=== PATIENT | male | born 1970 | race Two or more races ===

== ENCOUNTER → 2017-03-08 | Emergency (ER) | payer MEDICAID, OTHER ==
[~2017-03-08] MED LIST: ASPI81CH43; CARI250T8; DEPAKOTE; GEODON; NORCO; WARF7.5T
== END | disposition left against medical advice (07) ==
LOC: ER 21:12
DX: Z76.1 Encounter for health supervision and care of foundling (principal); Z76.0 Encounter for issue of repeat prescription; Z53.21 Procedure and treatment not carried out due to patient leaving prior to being seen by health care provider

== ENCOUNTER 2017-04-29 08:19 | Emergency (ER) | payer MEDICAID ==
[~2017-04-29] VITALS: Ht 167.6 cm; Wt 83.5 kg
[~2017-04-29 08:19] MED LIST changes: +CARI250T; -CARI250T8
[2017-04-29 08:41] VITALS: BP 120/86
== END 2017-04-29 09:06 | disposition home or self-care (01) ==
LOC: ER 08:19
DX: F41.9 Anxiety disorder, unspecified (principal); R51 Headache; F17.290 Nicotine dependence, other tobacco product, uncomplicated; I82.509 Chronic embolism and thrombosis of unspecified deep veins of unspecified lower extremity

== ENCOUNTER 2021-05-04 14:51 | Emergency (ER) | payer MEDICAID ==
[~2021-05-04] VITALS: Ht 167.6 cm; Wt 97.5 kg
[~2021-05-04 14:51] MED LIST changes: -WARF7.5T; +WARF7.5T2
[2021-05-04 15:28] LABS: Basophils # (auto) 0.1 10 ^3/uL (0-0.2); Basophils % (auto) 1.2 % (0.0-2.0); Eosinophils # (auto) 0.1 10 ^3/uL (0-0.8); Eosinophils % (auto) 2.3 % (0.0-7.0); Hematocrit 43.1 % (41.0-53.0); Hemoglobin 14.7 g/dL (13.5-17.5); Lymphocytes # (auto) 1.3 10 ^3/uL (0.4-5.4); Lymphocytes % (auto) 23.2 % (10.0-50.0); Mean Corpuscular Hemoglobin 29.8 pg (28.0-32.0); Mean Corpuscular Hgb Conc. 34.1 g/dL (32.0-36.0); Mean Corpuscular Volume 87.4 fL (80.0-100.0); Monocytes # (auto) 0.5 10 ^3/uL (0-1.3); Monocytes % (auto) 9.3 % (0.0-12.0); Neutrophils # (auto) 3.6 10 ^3/uL (1.6-8.6); Nucleated Red Blood Cells % 0.1 %; Red Blood Cells 4.94 10^6/uL (4.5-5.90); Red Cell Distribution Width 13.2 % (11.8-14.3); White Blood Cell 5.6 10^3/uL (4.4-10.8)
[2021-05-04 15:48] LABS: Albumin 3.6 g/dL (3.4-5.0); Calcium 8.7 mg/dL (8.5-10.1); Potassium 4.3 mmol/L (3.5-5.1)
[2021-05-04 15:51] LABS: Bilirubin, Total 0.2 mg/dL (0.2-1.0); INR 0.97 (0.9-1.15); Partial Thromboplastin Time 24.8 sec (23.0-31.2); Total Protein 7.2 g/dL (6.4-8.2)
[2021-05-04 20:15] VITALS: BP 126/83
== END 2021-05-04 20:20 | disposition home or self-care (01) ==
LOC: ER 14:51
DX: I82.4Z2 Acute embolism and thrombosis of unspecified deep veins of left distal lower extremity (principal); Z86.73 Personal history of transient ischemic attack (TIA), and cerebral infarction without residual deficits; Z79.82 Long term (current) use of aspirin; Z79.01 Long term (current) use of anticoagulants; Z79.899 Other long term (current) drug therapy
CPT/HCPCS: 36415; 80053; 85025; 85610; 85730; 93005; 93971